=== PATIENT | male | born 1955 | race Asian ===

== ENCOUNTER 2016-12-08 13:52 | Day surgery (SDC) | payer OTHER ==
[2016-12-08] MEDS ORDERED: FENTAnyl 50 MCG/ML VIAL ONE (15:46)
== END 2016-12-08 14:30 | disposition home or self-care (01) ==
LOC: SDS 13:52
PROVIDERS: ATTEND Otolaryngology
DX: J34.2 Deviated nasal septum (principal); Z53.9 Procedure and treatment not carried out, unspecified reason; J30.9 Allergic rhinitis, unspecified
CPT/HCPCS: J3010

== ENCOUNTER 2016-12-29 13:46 | Day surgery (SDC) | payer OTHER ==
[2016-12-29] VITALS (14 sets, daily range): BP systolic 111–155; BP diastolic 71–95; PULSE 75–88; RESP 16–28; Ht 167.6 cm; Wt 72.3 kg
[~2016-12-29] VITALS: Ht 167.6 cm; Wt 72.3 kg
[2016-12-29] MEDS ORDERED: GEMF600T60 PO (15:13)
[2016-12-29] MEDS ORDERED: OMEP20CA16 PO (15:13)
[2016-12-29] MEDS ORDERED: METF-382 PO (15:14)
[2016-12-29] MEDS ORDERED: LISI1TAB4 PO (15:14)
[2016-12-29] MEDS ORDERED: CEPH500C PO (15:15)
[2016-12-29] MEDS ORDERED: NAPR-688 PO (15:15)
[2016-12-29] MEDS ORDERED: ACET1TAB40 PO (15:16)
[2016-12-29 15:59] LABS: HEMATOCRIT 39.7 % (42.0-52.0); HEMOGLOBIN 13.4 g/dl (14.0-18.0); MEAN CORPUSCULAR HEMOGLOBIN 28.3 pg (29.0-33.0); MEAN CORPUSCULAR HGB CONC 33.7 g/dl (32.0-37.0); MEAN CORPUSCULAR VOLUME 84.1 fl (82.0-101.0); MEAN PLATELET VOLUME 8.9 fl (7.4-10.4); PLATELET COUNT 267 10^3/UL (140-440); RED BLOOD COUNT 4.72 10^6/ul (4.70-6.10); RED CELL DISTRIBUTION WIDTH 12.7 % (11.5-14.5); UNCORRECTED WBC 12.5 10^3/ul (4.8-10.8); WHITE BLOOD COUNT 12.5 10^3/ul (4.8-10.8)
[2016-12-29 16:04] LABS: CONDITION 1; LH ANALYZER COMMENTS 1
[2016-12-29 16:15] LABS: INR 1.05; PROTIME 13.7 Sec (12.2-14.2); PT RATIO 1.1
[2016-12-29 16:16] LABS: PARTIAL THROMBOPLASTIN TIME 29.7 Sec (25.0-35.0)
[2016-12-29 16:28] LABS: CREATININE 1.78 mg/dl (0.61-1.24); POTASSIUM 4.7 mmol/L (3.5-5.1)
[2016-12-29 16:40] LABS: EOSINOPHILS # 2.9 10^3/ul (0.0-0.5); LYMPHOCYTES # 3.5 10^3/ul (0.8-2.9); MONOCYTE # 0.6 10^3/ul (0.3-0.9); NEUTROPHIL # 5.5 10^3/ul (1.6-7.5)
--- NOTE | 2016-12-29 17:07 | HPN ---
Date/Time of Note Date/Time of Note DATE: 12/29/16 TIME: 17:06 Interval H&P Admission Note Pt. seen H&P reviewed: No system changes ADINA MALDONADO MD Dec 29, 2016 17:07
[2016-12-29] MEDS ORDERED: MEPERIDINE 25 MG INJ IV PRN (19:00)
[2016-12-29] MEDS ORDERED: ONDANSETRON 4 MG INJ IV PRN ×2 (19:00→20:30)
[2016-12-29] MEDS ORDERED: DIPHENHYDRAMINE 50 MG INJ IV PRN (19:00)
[2016-12-29] MEDS ORDERED: FENTAnyl 50 MCG/ML VIAL IV PRN (19:00)
[2016-12-29] MEDS ORDERED: HYDROmorphONE (0.2 MG/ML) 10ML SYG IV PRN ×2 (19:00)
[2016-12-29] MEDS ORDERED: LIDOCAINE 1%/EPI 30 ML INJ ONE (19:45)
[2016-12-29] MEDS ORDERED: BACITRACIN/POLYMYXIN 28.35 GM OINT TOP ONE (19:46)
[2016-12-29] MEDS ORDERED: COCAINE 4% 4 ML TOP ONE (19:46)
[2016-12-29] MEDS ORDERED: LIDOCAINE 2% (SDV) 5 ML INJ ONE (19:59)
[2016-12-29] MEDS ORDERED: PROPOFOL 20 ML ONE (19:59)
[2016-12-29] MEDS ORDERED: MIDAZOLAM 1 MG/ML 2 ML INJ ONE (19:59)
[2016-12-29] MEDS ORDERED: CEFAZOLIN 1 GM INJ ONE (19:59)
[2016-12-29] MEDS ORDERED: FENTAnyl 50 MCG/ML VIAL ONE (20:00)
[2016-12-29] MEDS ORDERED: PHENYLephrine (100 MCG/ML) 5ML SYG ONE (20:14)
[2016-12-29] MEDS ORDERED: METOCLOPRAMIDE 10 MG INJ ONE (20:16)
[2016-12-29] MEDS ORDERED: DEXAMETHASONE 4 MG/ML 1 ML INJ ONE (20:16)
[2016-12-29] MEDS ORDERED: ONDANSETRON 4 MG INJ ONE (20:16)
[2016-12-29] MEDS ORDERED: morphine 2 MG INJ IV PRN (20:30)
[2016-12-29] MEDS ORDERED: TRIMETHOBENZAMIDE 100 MG/ML VIAL IM PRN (20:30)
[2016-12-29] MEDS ORDERED: PROCHLORPERAZINE 10 MG INJ IV PRN (20:30)
[2016-12-29] MEDS ORDERED: OXYCODONE/ACETAMINOPHEN (5/325) TAB PO PRN (20:30)
--- NOTE | 2016-12-29 20:31 | OPR ---
Date/Time of Note Date/Time of Note DATE: 12/29/16 TIME: 20:30 Operative Report Procedure Date: Dec 29, 2016 Preoperative Diagnosis DNS, ITH Postoperative Diagnosis Same Operation Performed Septoplasty, submucous resection of inferior turbinates. Surgeon: AIDNA MALDONADO MD Anesthesia: general Estimated Blood Loss: 0 - 10 ml's Complications: None Pt Condition Post Procedure: stable Disposition: PACU Indications Nasal congestion. Operative Findings DNS left, ITH right worse. Procedure Description Description of procedure: The patient was identified in the holding area. We had a discussion to confirm understanding of all indications risks benefits alternatives and postoperative care associated with the operation. The patient signed informed consent was taken to the operating room. The patient was laid supine on the operating room table and general anesthesia was achieved without difficulty. The face was draped in sterile fashion and the nose was packed with 4% cocaine pledgets. The nasal septum was infiltrated with 5 cc of 1% lidocaine with epinephrine in the submucoperiosteal plane bilaterally. A left sided [place] incision was made and submucoperichondreal flaps were raised. The bony cartilaginous junction of the septum was identified and entered. A deviated segments of bone and cartilage were isolated. A double- action scissor was used to transect the bony deviated segment of the skull base after which a Noa forcep was used to resect deviated segment of bone and cartilage. Care was taken to avoid excess cartilaginous resection. The flaps were returned to normal position and anterior rhinoscopy reveals midline septum. At this point the right inferior turbinate was medialized with a Metz elevator. The Coblation wand on a setting of 6 was used to enter the turbinate in the inferior medial submucosal compartment. 10 seconds of Coblation were performed at the 3rd 2nd and 1st loza after which the turbinate was crushed laterally into the lateral nasal wall with a Briggs elevator. The contralateral turbinate was addressed in similar fashion to complete the bilateral submucous resection and lateral fracturing of the inferior turbinates. Septal splints were placed and secured with a 40 fast-absorbing gut whip stitch. A Merocel pack was placed on each side. The patient was awakened, extubated and taken to the PACU in stable condition. Complications: None. ADINA MALDONADO MD Dec 29, 2016 20:31
[2016-12-29] MEDS ORDERED: GLUCOSE GEL 15 GRAM TUBE BUCCAL PRN (21:00)
[2016-12-29] MEDS ORDERED: INSULIN ASPART [NOVOLOG] 3 ML PEN SC ONE (21:00)
[2016-12-29] MEDS ORDERED: DEXTROSE 50% 50 ML SYRINGE IV PRN ×2 (21:00)
[2016-12-29] MEDS ORDERED: GLUCOSE GEL 15 GRAM TUBE PO PRN ×2 (21:00)
[2016-12-29] MEDS ORDERED: GLUCAGON 1 MG INJ IM PRN (21:00)
== END 2016-12-29 23:02 | disposition home or self-care (01) ==
LOC: SDS 13:46
PROVIDERS: ATTEND Otolaryngology
DX: J34.2 Deviated nasal septum (principal); J34.3 Hypertrophy of nasal turbinates; E11.22 Type 2 diabetes mellitus with diabetic chronic kidney disease; I12.9 Hypertensive chronic kidney disease with stage 1 through stage 4 chronic kidney disease, or unspecified chronic kidney disease; N18.9 Chronic kidney disease, unspecified; E78.5 Hyperlipidemia, unspecified; K21.9 Gastro-esophageal reflux disease without esophagitis
CPT/HCPCS: 30140; 30520; 80048; 82962; 85025; 85610; 85730; J0690; J1100; J1170; J1815; J2250; J2370; J2405; J2765; J3010; Z7512; Z7610